=== PATIENT | male | born 1995 | race Caucasian/White ===

== ENCOUNTER 2016-07-22 08:28 | Emergency (ER) | payer BC ==
[~2016-07-22] VITALS: Ht 180.3 cm; Wt 90.9 kg
[2016-07-22 08:55] LABS: BASOPHILS % (AUTO) 0 % (0-2); EOSINOPHILS # (AUTO) 0.1 10^3uL; EOSINOPHILS % (AUTO) 2 % (0-4); MEAN CORPUSCULAR HEMOGLOBIN 29.2 PG (26.0-34.0); MEAN CORPUSCULAR VOLUME 81 FL (80-100); MEAN PLATELET VOLUME 8.8 FL (6.0-9.5); MONOCYTES # (AUTO) 0.4 X10^3; MONOCYTES % (AUTO) 6 % (3-11); NEUTROPHILS # (AUTO) 2.8 X10^3; NEUTROPHILS % (AUTO) 44 % (51-67); PLATELET COUNT 248 10^3uL (150-450); WHITE BLOOD COUNT 6.29 10^3uL (4.0-11.0)
[2016-07-22 09:39] LABS: ALBUMIN 4.3 g/dL (3.4-5.0); ANION GAP 13.6 MEQ/L (3-15); CALCULATED IONIZED CALCIUM 3.7 mg/dL (3.8-4.6); TOTAL PROTEIN 6.8 g/dL (6.4-8.5)
[2016-07-22 10:24] VITALS: BP 152/92
[2016-07-22] MEDS ORDERED: meTOprolol TARTRATE 25 MG (LOPRESSOR) TABLET PO ONE (10:25)
== END 2016-07-22 10:31 | disposition home or self-care (01) ==
LOC: ED 08:30
DX: R55 Syncope and collapse (principal); I10 Essential (primary) hypertension; E83.51 Hypocalcemia
CPT/HCPCS: 36415; 80053; 84443; 85025; 93005; 99285; J7030; 93010; 96360; 99284

== ENCOUNTER → 2016-08-11 | Outpatient (REF) | payer BC ==
[~2016-08-11] MED LIST: METO25TA60 PO
[2016-08-11 12:46] LABS: BILIRUBIN,URINE Negative (Negative); CLARITY,URINE Clear; COLOR,URINE Yellow; GLUCOSE, URINE (UA) Negative (Negative); LEUKOCYTE ESTERASE ,URINE Negative (Negative); UROBILINOGEN,URINE 0.2 mg/dL (0.2-1.0)
== END ==
LOC: LAB 11:55
PROVIDERS: ATTEND Physician Assistant Surgical
DX: I10 Essential (primary) hypertension (principal)
CPT/HCPCS: 81003

== ENCOUNTER → 2016-08-12 | Outpatient (CLI) | payer BC | LOC: RAD 09:37 | PROVIDERS: ATTEND Physician Assistant Surgical | DX: R55 Syncope and collapse (principal); I10 Essential (primary) hypertension | CPT/HCPCS: 93306 ==